=== PATIENT | male | born 1995 | race Two or more races ===

== ENCOUNTER 2023-10-21 13:06 | Emergency (ER) | payer MEDICAID ==
[~2023-10-21] VITALS: Ht 162.6 cm; Wt 64.0 kg
[2023-10-21 13:10] VITALS: TEMP 98.4
[2023-10-21] MEDS: ONDANSETRON HCL 4 MG TABLET PO ONE (14:36)
[2023-10-21] MEDS: IBUPROFEN 600 MG TABLET PO ONE (14:36)
[2023-10-21] MEDS: HYDROCODONE/ACETAMINOPHEN 5-325 MG TABLET PO ONE (14:36)
[2023-10-21 15:15] VITALS: BP 120/76; PULSE 88; RESP 18
[2023-10-21] MEDS ORDERED: HYDR-4062 PO (15:55)
[2023-10-21] MEDS ORDERED: IBUP-1554 PO (15:55)
== END 2023-10-21 16:29 | disposition home or self-care (01) ==
LOC: EMS 13:06
DX: S00.83XA Contusion of other part of head, initial encounter (principal); X58.XXXA Exposure to other specified factors, initial encounter; Y93.66 Activity, soccer; Y92.89 Other specified places as the place of occurrence of the external cause; Y99.8 Other external cause status
CPT/HCPCS: 99284; 70140; Q0162